=== PATIENT | male | born 1980 | race Hispanic/Latino ===

== ENCOUNTER 2018-07-30 14:19 | Emergency (ER) | payer SELFPAY ==
[~2018-07-30] VITALS: Ht 165.1 cm; Wt 72.6 kg
--- OUTSIDE RECORDS SUMMARY | 2018-07-30 14:21 | XMS REPORT ---
[facility] Address Unknown Phone Unavailable Care Team Providers Care Dimension Specification Inspector Name Role Phone Unavailable Unavailable Payers Payer Name Policy Type Policy Number Effective Date Expiration Date Problems This patient has no known problems. Allergies, Adverse Reactions, Alerts Allergy Name Allergy Type Status Severity Reaction(s) Onset Date Inactive Date Treating Clinician Comments No Known Allergies DA Active U 2018-07-29 00:00:00 Medications This patient has no known medications. Results Test Description Test Time Test Comments Text Results Atomic Results Result Comments - XR L-SPINE 4 + VIEWS 2018-07-29 23:31:00 Name: RUTHY ARACELIS CASTROIS [facility] : 1980 Age/S:37 /M [address] Unit#:[id number] Loc: [place] [address] Phys: Nathaniel Villanueva MD Dis Date: PHONE #: [phone] Status: REG ER FAX #: [phone] Exam Date: 07/29/2018 Reason: Back pain EXAMS: CPT CODE: [id number] XR L-SPINE 4 + VIEWS [id number] HISTORY: Male, 37 years of age with Back pain Location code: R16 EXAM: LUMBAR SPINE, 5 VIEWS. COMPARISON: None FINDINGS: Multiple images are degraded by cassette artifact. Five nonrib-bearing lumbar vertebrae are identified. No acute fracture, posttraumatic subluxation, osteolytic or osteoblastic lesion. There is mild spondylosis in lower lumbar spine. No significant disc space narrowing. No spondylolysis or spondylolisthesis. No significan t scoliosis. IMPRESSION: Minor lower lumbar spondylosis. No acute bony abnormality in the lumbar spine. at 2331 Reported and signed by: Adri Schmid MD CC: Nathaniel Villanueva MD Technologist: TERRELL VARGAS RT(R),CT Trnscrpt Data: 07/29/2018 ([id number]) [email or web address] Orig Print D/T: S: 07/29/2018 ([id number]) PAGE 1 Signed Report URINALYSIS COMPLETE 2018-07-29 23:24:00 UA COLOR (test code=COLU) YELLOW YELLOW UA APPEARANCE (test code=APPU) CLEAR CLEAR UA GLUCOSE DIPSTICK (test code=DGLUU) norm mg/dL NEGATIVE UA BILIRUBIN DIPSTICK (test code=BILU) NEGATIVE mg/dL NEGATIVE UA KETONE DIPSTICK (test code=KETU) neg mg/dL NEGATIVE UA SPECIFIC GRAVITY (test code=SGU) 1.015 1.001-1.035 UA BLOOD DIPSTICK (test code=SHON) 25 (1+) Con/uL NEGATIVE UA PH DIPSTICK (test code=JENNIFER) 6.0 5.0-8.0 UA PROTEIN DIPSTICK (test code=PROU) neg mg/dL Neg-15 UA UROBILINIOGEN DIPSTICK (test code=URO) norm mg/dL 0.0-0.2 UA NITRITE DIPSTICK (test code=GHULAM) NEGATIVE NEGATIVE UA LEUKOCYTE ESTERASE DIPSTICK (test code=LEUU) neg uL NEGATIVE UA WBC (test code=WBCU) 0-5 per HPF 0-5 IN SOME URINARY TRACT INFECTIONS THERE MAY NOT BE ENOUGHWBCs IN THE URINE TO TRIGGER AN AUTOMATIC (REFLEX) URINECULTURE. A SEPERATE ORDER FOR URINE CULTURE IS RECOMMENDEDIF THERE IS STRONG SUPPORT FOR A URINARY TRACT INFECTIONCLINICALLY. UA RBC (test code=RBCU) 0-2 per HPF 0-5 UA EPITHELIAL CELLS (test code=EPIU) None seen per HPF Few UA BACTERIA (test code=BACU) NONE SEEN per HPF NONE Urine Source? Clean CatchURINALYSIS [id number] 23:20:00* Test Item Value Reference Range Comments UA COLOR (test code=COLU) YELLOW YELLOW UA APPEARANCE (test code=APPU) CLEAR CLEAR UA GLUCOSE DIPSTICK (test code=DGLUU) norm mg/dL NEGATIVE UA BILIRUBIN DIPSTICK (test code=BILU) NEGATIVE mg/dL NEGATIVE UA KETONE DIPSTICK (test code=KETU) neg mg/dL NEGATIVE UA SPECIFIC GRAVITY (test code=SGU) 1.015 1.001-1.035 UA BLOOD DIPSTICK (test code=SHON) 25 (1+) Con/uL NEGATIVE UA PH DIPSTICK (test code=JENNFIER) 6.0 5.0-8.0 UA PROTEIN DIPSTICK (test code=PROU) neg mg/dL Neg-15 UA UROBILINIOGEN DIPSTICK (test code=URO) norm mg/dL 0.0-0.2 UA NITRITE DIPSTICK (test code=GHULAM) NEGATIVE NEGATIVE UA LEUKOCYTE ESTERASE DIPSTICK (test code=LEUU) neg uL NEGATIVE UA WBC (test code=WBCU) per HPF 0-5 UA RBC (test code=RBCU) per HPF 0-5 UA EPITHELIAL CELLS (test code=EPIU) per HPF Few UA BACTERIA (test code=BACU) per HPF NONE Urine Source? Clean Catch
[2018-07-30] MEDS ORDERED: ONDANSETRON HCL INJ 2MG/ML 2ML 2 MG/ML VIAL IV STA (14:35)
[2018-07-30] MEDS ORDERED: MORPHINE SULFATE INJ 4 MG/ML INJ 1ML IV PRN (14:45)
[2018-07-30] MEDS ORDERED: SODIUM CHLORIDE 0.9% 1000ML 1,000 ML IV SCH (14:45)
[2018-07-30] MEDS ORDERED: IOPAMIDOL 300MG/ML 100 ML INFUS..BTL IV ONE (16:00)
--- NOTE | 2018-07-30 16:26 | Diagnostic Imaging Report ---
Lumbar spine CT with IV contrast History: Back pain with fever Comparison studies: None Technique: Axial images were obtained through the lumbar spine. Coronal and sagittal images reconstructed from the axial data. Dose modulation, iterative reconstruction, and/or weight based adjustment of the mA/kV was utilized to reduce the radiation dose to as low as reasonably achievable. Intravenous contrast: None Findings: Number of non-rib bearing vertebral bodies: 5 Alignment: Straight lumbar curvature may be positional. No subluxations. Soft tissues: Reactive wall thickening and edema within the partially imaged ileum and ascending colon with associated engorgement of the vasa recta vessels, mild perienteric fat stranding and multiple mildly enlarged mesenteric lymph nodes. Paraspinal muscles: Unremarkable. Sacroiliac joints: No degenerative changes. Vertebrae: No fractures, infection or neoplasm. Degenerative changes: L1-L2: No abnormalities. L2-L3: No abnormalities. L3-L4: Symmetric disc bulge result in mild canal and bilateral foraminal stenosis. L4-L5: Symmetric disc bulge results in mild canal and bilateral foraminal stenosis. L5-S1: Symmetric disc bulge with small central disc protrusion and bilateral foraminal disc ossify complexes which result in mild to moderate bilateral foraminal stenosis. There is mild narrowing of the subarticular recesses with disc herniation which abuts the right S1 subarticular nerve root. Partially imaged sacrum: Degenerative changes on the right with articular sclerotic changes and anterior osteophytosis with partial and gliosis. IMPRESSION: 1. Nonspecific ileocolitis with reactive mesenteric lymph nodes which may be infectious or inflammatory inflammatory. Consider inflammatory bowel disease in the appropriate clinical setting. Recommend dedicated abdomen-pelvis CT to further evaluate. 2. No CT evidence of discitis-osteomyelitis . 3. Degenerative changes most notable for small disc herniation which abuts the right S1 nerve root and mild to moderate bilateral foraminal stenosis at L5-S1. 4. Degenerative changes in the partially imaged right sacroiliac joint. Signed by: Dr. Shawn Vogel M.D. on 07/30/2018 4:23 PM
[2018-07-30 16:30] VITALS: BP 119/79
== END 2018-07-30 16:37 | disposition home or self-care (01) ==
LOC: FSED 14:19
DX: M54.42 Lumbago with sciatica, left side (principal); S39.012A Strain of muscle, fascia and tendon of lower back, initial encounter
CPT/HCPCS: 72131; 80053; 81003; 85025; 99284; J2405; J7030; Q9967; 72132